=== PATIENT | female | born 1955 | race Two or more races ===

== ENCOUNTER 2020-11-21 18:30 | Emergency (ER) | payer OTHER ==
[~2020-11-21] VITALS: Ht 175.3 cm; Wt 79.4 kg
[2020-11-21] MEDS ORDERED: CRESTOR20 MG PO (18:48)
[2020-11-21] MEDS ORDERED: SYNTHROID125 MCG PO (18:48)
[2020-11-21] MEDS ORDERED: ZITHROMAX TRI-500 MG PO (20:44)
== END 2020-11-21 21:40 | disposition home or self-care (01) ==
LOC: ER 18:30
DX: S60.511A Abrasion of right hand, initial encounter (principal); W55.03XA Scratched by cat, initial encounter; Y93.89 Activity, other specified; Y92.89 Other specified places as the place of occurrence of the external cause; Y99.8 Other external cause status

== ENCOUNTER 2022-07-08 11:09 | Outpatient (CLI) | payer OTHER ==
[~2022-07-08 11:09] MED LIST: CRESTOR20 MG PO; SYNTHROID125 MCG PO; ZITHROMAX TRI-500 MG PO
== END 2022-07-08 11:15 | disposition home or self-care (01) ==
LOC: SONOGRAMA 11:09
DX: M75.81 Other shoulder lesions, right shoulder (principal)

== ENCOUNTER 2022-09-29 10:08 | Outpatient (CLI) | payer OTHER | END 2022-09-29 10:16 | disposition home or self-care (01) | LOC: SONOGRAMA 10:08 | DX: M75.82 Other shoulder lesions, left shoulder (principal) ==